=== PATIENT | male | born 1995 | race Caucasian/White ===

== ENCOUNTER 2016-11-04 20:31 | Emergency (ER) | payer BC ==
[~2016-11-04] VITALS: Ht 180.3 cm; Wt 127.6 kg
[2016-11-04] MEDS ORDERED: KEFLEX500 MG PO (23:13)
[2016-11-04 23:27] VITALS: BP 120/75
== END 2016-11-04 23:28 | disposition home or self-care (01) ==
LOC: EME 20:31
PROC: 0HQ1XZZ Repair Face Skin, External Approach (ICD-10-PCS; principal; 2016-11-04)
DX: S01.21XA Laceration without foreign body of nose, initial encounter (principal); S02.2XXA Fracture of nasal bones, initial encounter for closed fracture; S00.12XA Contusion of left eyelid and periocular area, initial encounter; W50.0XXA Accidental hit or strike by another person, initial encounter; Y93.67 Activity, basketball
CPT/HCPCS: 70486; 99281; 99284